=== PATIENT | female | born 1945 | race Caucasian/White ===

== ENCOUNTER 2021-05-07 12:54 | Outpatient (CLI) | payer MEDICARE, SELFPAY ==
[2021-05-07 13:30] VITALS: BP 130/65; PULSE 111; RESP 16; TEMP 37.3; O2SAT 99; BMI 21.5
[2021-05-07] MEDS: 0.9% Saline Lock 10 ML Syringe IV (13:35)
[2021-05-07 14:08] VITALS: BP 127/71; PULSE 85; RESP 16; TEMP 37.3; O2SAT 98
[2021-05-07 15:05] VITALS: BP 140/73; PULSE 78; RESP 16; TEMP 37.3; O2SAT 98
== END 2021-05-07 15:10 | disposition home or self-care (01) ==
LOC: MS3OUT 12:54 → MS3 12:55
PROVIDERS: PCP Family Medicine; Referring Provider Nurse Practitioner Adult Health; Visit Provider Nurse Practitioner Adult Health
DX: Z23 Encounter for immunization (principal); U07.1 COVID-19
CPT/HCPCS: J7050; M0245; Q0245; A4216

== ENCOUNTER 2022-07-15 15:00 | Outpatient (RCR) | payer MEDICARE, SELFPAY ==
--- NOTE | 2022-07-15 09:12 | HP.PTEVAL_ITS ---
Patient's Visit Information NILTON RUELAS is a 76 year old F referred to Physical Therapy by Dr. Long Marques DO with a diagnosis of R shoulder impingement. Date of Evaluation: 06/26/22 Physical Therapist: Zachary Garcia DPT - Visit Plan Frequency: 2x /Week Duration: 6 Weeks Plan: Start with RTC stability, lower trap/mid trap and rhomboid stregnthening. - Subjective Pt. is here today for her initial evaluation with diagnosis of R shoulder impingement syndrome. Pt. reports having symptoms for a few months, but has become worse with helping recently who has had more difficulty with his mobility. Pt. reports pain with sleeping on her R side and with lifting her arm out to the side. Pt. denies radicular pain. Pt. recently had an injection in her shoulder which had helped out a lot. Pt. has had similar pain since the summer, but has become worse since assisting her . Pt. has not been doing exercises at this point in time. Pt. is hopeful to reduce symptoms in order to get back to all recreational activities without limitations. - Pain R shoulder Pain Intensity (Out of 10): 3 Pain Intensity Range: 2, 8 - Objective POSTURE: Pt. has slight FH posture and slight rounded shoulders. Pt. is able to correct with VC/TCing. PALPATION: Pt. has slight tenderness at anterior/lateral aspect of subacromial space. No pain with scapular palpation. Slight tenderness along biceps tendon. NEURO: normal. ROM: Overall normal. Slight increase in symptoms with active shoulder abduction on R side. MMT: R shoulder: abduction 4+/5, flexion 4+/5, IR 5/5, ER 4/5, ext 5/5. L shoulder 5/5 throughout. - Balance/Special Test Scores Quick DASH Score: 36.3625 - Goals Goal 1:: LTG: Pt. to be I with HEP. Goal Time Frame: 4-6 Weeks Goal 2:: STG: Pt. to be able to complete all ADLs without issues. Goal Time Frame: 2 Weeks Goal 3:: STG: pt. to sleep without increase in R shoulder pain. Goal Time Frame: 2 Weeks Goal 4:: LTG: Pt. to have full motion of R shoulder without increase in symptoms. Goal Time Frame: 4-6 Weeks Goal 5:: LTG: Pt. to have full symmetrical strength of B shoulders without increase in symptoms. Goal Time Frame: 4-6 Weeks Goal 6:: LTG: pt. to complete all golf swings without increase in symptoms. Goal Time Frame: 4-6 Weeks - Rehabilitation Potential Physical Therapy Diagnosis: Pt. has signs and symptoms consistent with R shoulder impingement. She did not have any street signs of RTC tears or more sinister pathology. She has pain when impinging this area. She has decent strength, but I would like to work on her lower/mid trap and rhomboids to aid in proper mobility of the shoulder complex. Rehabilitation Potential: Excellent - Anticipated Interventions Patient/Client Instruction: Educate patient on: Condition, Plan of Care, Risk Factors, Benefits of Fitness Program For the Purpose of:: To foster healthy habits, To improve decision making, To facilitate caregiver knowledge, To improve self management, To prevent re- injury, To improve ability to perform tasks related to life management Therapeutic Exercise to Include: Strength training, Power training, Postural training, Scapular Strength/Stabilization For the Purpose of:: To decrease pain, To increase ROM, To improve nutrient delivery to tissue, To increase oxygenation perfusion, To improve muscle performance and motor function, To improve health of tissue, To decrease soft tissue restriction, To increase flexibility/ROM Manual Therapy Techniques to Include: Mobilization, Functional dry needling, Soft tissue mobilization For the Purpose of:: To increase ROM, To improve nutrient delivery to tissue, To increase oxygenation perfusion, To improve muscle performance and motor function Thank you for the opportunity to evaluate your patient. For Medicare and Medicare HMO plans, please review the plan of care and approve it. It will need to be FAXED BACK to us at [phone] for Medicare purposes. For Medicare only, by signing this I certify the plan of care. Please let me know if there are questions or concerns regarding this plan of care. Physician Signature: D ate:
== END 2022-07-15 19:00 | disposition home or self-care (01) ==
LOC: PT 15:00
PROVIDERS: PCP Family Medicine; Referring Provider Orthopaedic Surgery; Visit Provider Orthopaedic Surgery
DX: M75.41 Impingement syndrome of right shoulder (principal)
CPT/HCPCS: 97110; 97161

== ENCOUNTER 2022-11-26 08:00 | Outpatient (RCR) | payer MEDICARE, SELFPAY ==
--- NOTE | 2022-11-19 08:27 | HP.PTEVAL ---
Patient's Visit Information NILTON RUELAS is a 77 year old F referred to Physical Therapy by JG Romano with a diagnosis of R shoulder impingement. Date of Evaluation: 11/11/22 Physical Therapist: Zachary Garcia DPT - Visit Plan Frequency: 1-2x /Week Duration: 6 Weeks Plan: Start with - Subjective Pt. is here today for her initial evaluation with diagnosis of R shoulder impingement syndrome. Pt. reports having similar issue last year. She reports no mech of injury. Pt. reports haivng increased R shoulder pain with shoulder abduction and with flexion movements. She is able to play gofl without issues, but is mostly impacked with OH movements and with lifting. Pt. is hopeful to reduce symptoms in order to do all lifting without issues. - Pain R shoulder Pain Intensity (Out of 10): 0 Pain Intensity Range: 0, 2 Comment: 2/10 with abduction movements. - Objective POSTURE: Pt. has decent posture in stance. SLight rounded shoulders, but not bad. Pt. able to correct with VCing without increase in symptoms. PALPATION: Pt. has tenderness at lateral shoulder along lateral subacromial space and slightly posterior. NEURO: Normal sensation and normal DTR of BUEs. ROM: L shoulder: full ROM without increase in symptoms. R shoulder: full ROM but does have a marked painful arc with abd and flexion movements starting at ~70deg of each. MMT: L shoulder; 5/5 throughout without increase in symptoms. R elbow: 5/5 throughout; R shoulder: flexion 5-/5, abd 4/5 mild increase NW, ER 5-/5 mild increase NW, IR 5/5 NE, ext 5/5 NE. - Special Tests R Shoulder Drop Sign - IS Test: Negative R Shoulder Empty Can - SS: Positive R Shoulder Belly Press - SupScap: Negative R Shoulder Neer - Impingement: Positive R Shoulder Butts Jr - Impingement: Positive R Shoulder Yeargasons - SLAP: Negative R Shoulder Jerk Test - Posterior Inferior Labrum: Negative R Shoulder Apprehension Test - Anterior Instability: Negative R Shoulder Speeds Test - Labrum/Biceps: Negative - Balance/Special Test Scores Quick DASH Score: 20.4525 - Goals Goal 1:: LTG: Pt. to be I with HEP. Goal Time Frame: 4-6 Weeks Goal 2:: STG: pt. to sleep throughout the night without increase in symptoms. Goal Time Frame: 2-4 Weeks Goal 3:: LTG: Pt. to complete all recreational activities without increase in symptoms. Goal Time Frame: 4-6 Weeks Goal 4:: LTG: Pt. to have full R shoulder strength 5/5 without increase in symptoms. Goal Time Frame: 4-6 Weeks Goal 5:: LTG: Pt.t o have R shoulder ROM without increase in symptoms. Goal Time Frame: 2-4 Weeks - Rehabilitation Potential Physical Therapy Diagnosis: Pt. has signs and symptoms consistent with R shoulder impingement. Pt. has a painful arc and + special testing suggesting the similar. Pt. would benefit from PT increase her strength to reduce stress to RTC with over head movements. Rehabilitation Potential: Excellent - Anticipated Interventions Patient/Client Instruction: Educate patient on: Condition, Plan of Care, Risk Factors, Benefits of Fitness Program For the Purpose of:: To improve decision making, To facilitate caregiver knowledge, To improve self management, To prevent re-injury, To improve ability to perform tasks related to life management, To improve tolerance to ADL's Therapeutic Exercise to Include: Strength training, Power training, Endurance training, Passive ROM, Active ROM, Scapular Strength/Stabilization For the Purpose of:: To decrease pain, To increase ROM, To improve nutrient delivery to tissue, To increase oxygenation perfusion, To improve muscle performance and motor function, To improve ability to perform ADL's, To improve health of tissue, To decrease soft tissue restriction, To increase flexibility/ROM Thank you for the opportunity to evaluate your patient. For Medicare and Medicare HMO plans, please review the plan of care and approve it. It will need to be FAXED BACK to us at [phone] for Medicare purposes. For Medicare only, by signing this I certify the plan of care. Please let me know if there are questions or concerns regarding this plan of care. Physician Signature: Date:
--- NOTE | 2023-02-20 11:32 | HP.PT.NRP ---
Patient Information Patient Information: NILTON RUELAS was seen in my office for initial evaluation on 11/11/22. The following Plan of Care was established for this patient: POC Established Initial Frequency: 1-2x /Week Initial Duration: 6 Weeks Anticipated Interventions Patient/Client Instruction: Educate patient on: Condition, Plan of Care, Risk Factors and Benefits of Fitness Program For the Purpose of:: To improve decision making, To facilitate caregiver knowledge, To improve self management, To prevent re-injury, To improve ability to perform tasks related to life management and To improve tolerance to ADL's Therapeutic Exercise to Include: Strength training, Power training, Endurance training, Passive ROM, Active ROM and Scapular Strength/Stabilization For the Purpose of:: To decrease pain, To increase ROM, To improve nutrient delivery to tissue, To increase oxygenation perfusion, To improve muscle performance and motor function, To improve ability to perform ADL's, To improve health of tissue, To decrease soft tissue restriction and To increase flexibility/ROM Last Seen Last Seen: This patient was last seen in our office 11/26/22. Pertinent comments regarding their Physical therapy will appear below: Pt. was seen in PT for her R shoulder. Pt. was seen a few visits and was doing well. Pt. has not been seen in a few months and will be DC from PT at this point in time. At this point I will be discontinuing this patient from physical therapy. I would be happy to see this patient again in the future if found appropriate by the physician. Thank you! Zachary Garcia, DPT Balance/Gait/Functional tests Balance/Special Test Scores Quick DASH Score: 20.4553
== END 2022-11-26 19:00 | disposition home or self-care (01) ==
LOC: PT 08:00
PROVIDERS: PCP Family Medicine; Referring Provider Nurse Practitioner Family; Visit Provider Nurse Practitioner Family
DX: M75.40 Impingement syndrome of unspecified shoulder (principal)
CPT/HCPCS: 97110; 97161

== ENCOUNTER → 2023-03-31 | Outpatient (CLI) | payer MEDICARE, SELFPAY ==
--- NOTE | 2023-03-31 10:51 | BI_ITS ---
MAMMOGRAPHY - BILATERAL SCREENING REASON FOR EXAM: Female, 77 years old. Routine annual screening examination. PERTINENT HISTORY: Non-contributory. Remote right needle breast biopsy. TECHNIQUE: Digital bilateral breast toro (3D mammographic acquisition) in the CC and MLO projections. 2-D mediolateral oblique (MLO) and craniocaudad (CC) views of both breasts were obtained. CAD: Full Field Digital Mammography with Computer Added Detection was performed. COMPARISON: Comparison is made with prior outside examination of March 28, 2022 and May 09, 2017. FINDINGS: Breast Composition: The breasts are extremely dense, which lowers the sensitivity of mammography. There are no dominant masses or suspicious calcifications. Stable small benign-appearing bilateral axillary lymph nodes. Once again, 2 tissue markers are seen in the central slightly medial aspect of the right breast. No other significant abnormalities are identified. There has been no significant change since the prior study. BI/SCRN MAMM (CAD)W/TORO BILAT IMPRESSION: Stable bilateral screening mammogram. Yearly follow-up mammogram recommended. (A) ASSESSMENT CATEGORY: BIRADS Category 2: Benign. A letter regarding these results will be sent to the patient by the facility within 30 days. Approximately 10% of breast cancers are not detected by mammography. A normal mammogram should not delay biopsy of a clinically suspicious abnormality. [id number] Electronically Signed: Aashish Licea MD at 13:52 EDT ,
== END | disposition home or self-care (01) ==
LOC: OPBI 10:50
PROVIDERS: PCP Family Medicine; Referring Provider Family Medicine; Visit Provider Family Medicine
DX: Z12.31 Encounter for screening mammogram for malignant neoplasm of breast (principal)
CPT/HCPCS: 77063; 77067

== ENCOUNTER → 2023-04-02 | Outpatient (CLI) | payer MEDICARE, SELFPAY ==
[2023-04-02] MEDS: Methacholine Chloride 18 ml neb kit INHALATION (13:09)
--- NOTE | 2023-04-03 07:47 | BRONCHALL ---
Bronchoprovocation Challenge Bronchoprovocation Challenge Bronchoprovocation Challenge: INTRODUCTION: The patient is a 77-year-old female who presents for a bronchoprovocation challenge secondary to a diagnosis of cough. Respiratory therapy reported good patient effort and reproducible results. INTERPRETATION: Initial spirometry did not show any large airways obstructive ventilatory defect with preserved airflows throughout. The patient was then given progressively increasing doses of methacholine in a standardized fashion. The patient did not demonstrate any significant drop in FEV1 during testing that would be considered indicative of a positive test. IMPRESSION: Negative methacholine inhalation challenge.
== END | disposition home or self-care (01) ==
PROVIDERS: PCP Family Medicine
DX: R05.3 Chronic cough (principal)
CPT/HCPCS: 94070; 95070

== ENCOUNTER 2023-12-04 15:00 | Outpatient (RCR) | payer MEDICARE, SELFPAY ==
--- NOTE | 2023-10-23 15:47 | HP.PTEVAL ---
Patient's Visit Information Visit Information Visit Information: NILTON RUELAS is a 78 year old F referred to Physical Therapy by VERONICA YO with a diagnosis of R displaced mid cervical femur fx. Date of Evaluation: 10/22/23 Physical Therapist: Zachary Garcia DPT Visit Plan Frequency: 2x /Week Duration: 6 Weeks Plan: 1) BLE strength, especially knee extension and hip flexion. 2) balance training both static and dynamically. 3) agility exercises and balance recovery for increased stability with sports. Subjective Subjective: Pt. is here today for her initial evaluation with diagnosis of R displaced mid cervical femur fx. DOS: 07/08/23. Pt. fell and had a fracture. Pt. is overall doing well. pt. is hopeful to get back to golfing and pickleball. She is I with all mobility and household activities. She is back to driving as well. She reports still feeling week on her RLE and this is effecting her balance a bit. Pt. reports some achiness in her hip, but overall not much pain. She is back to driving and walking without AD. Pt. reports that she still feels weak in her RLE. Not much pain noted. Pt. would like to have increased strength to get back to all of her recreational activities without limitations. Pain R hip: Pain Intensity (Out of 10): 0 Pain Intensity Range: 0 and 1 Comment: a little achy Objective Objective: POSTURE: Pt. has pretty good posture in stance. No larger lateral wt. shift noted. PALPATION: Pt. has no tenderness to palpation NEURO: Normal throughout ROM: Pt. has good ROM throughout B hips. Normal HS length MMT: RLE: knee: ext 44.6#, flexion: 39.1#; hip: flexion 24.5#, abd: 22.1#, ext: 19.8# LLE: knee: ext 60.8#, flexion: 34.1#; hip: flexion 38.1#, abd: 22.5#, ext 22.6# GAIT: Pt. has a fairly normal gait pattern. No Trendelenburg noted. STAIRS: Pt. is able to negotiate with 1 HR without issues. Balance/Special Test Scores Functional Gait Assessment Score: 23 % Disability: 23.3400 Lower Extremity Functional Score: 60 TUG Test Time Seconds: 9.1 30 Second Chair Rise Test Seconds: 12 6 Minute Walk Test: 1210feet with out AD. Goals Goal 1:: LTG: Pt. to be I with HEP for LE strengthening and agility exercises. Goal Time Frame: 4-6 Weeks Goal 2:: LTG: Pt. to have increased strength throughout BLEs by 10#. Goal Time Frame: 4-6 Weeks Goal 3:: LTG: pt. to be able to golf and play pickleball without limitations or risk for falling. Goal Time Frame: 4-6 Weeks Goal 4:: LTG: Pt. to have increased FGA to 30/30 indicating reduced risk for future fall. Goal Time Frame: 4-6 Weeks Rehabilitation Potential Physical Therapy Diagnosis: Pt. has signs and symptoms consistent with R ORIF of her femur. Pt. is overall doing well, but has higher goals of getting back to golfing and pickleball. She has some marked weakness for the levels of these activities and I would like to progress these in PT. Her focus shoulder be on increasing her RLE strength and dynamic balance to increase stability and reduce risk for future falls. Rehabilitation Potential: Excellent Anticipated Interventions Patient/Client Instruction: Educate patient on: Condition, Plan of Care, Risk Factors and Benefits of Fitness Program For the Purpose of:: To facilitate caregiver knowledge, To improve self management, To prevent re-injury, To improve ability to perform tasks related to life management and To improve tolerance to ADL's Therapeutic Exercise to Include: Strength training, Power training, Endurance training, Balance training, Coordination, Flexibilty training, Gait and locomotor training and Active ROM For the Purpose of:: To increase ROM, To improve nutrient delivery to tissue, To increase oxygenation perfusion, To improve muscle performance and motor function, To improve gait and locomotor functions, To improve health of tissue, To decrease soft tissue restriction and To increase flexibility/ROM Text: Thank you for the opportunity to evaluate your patient. For Medicare and Medicare HMO plans, please review the plan of care and approve it. It will need to be FAXED BACK to us at [phone] for Medicare purposes. For Medicare only, by signing this I certify the plan of care. Please let me know if there are questions or concerns regarding this plan of care. Physician Signature: Date:
--- NOTE | 2024-01-08 09:23 | HP.PTDCSUM ---
Discharge Summary D/C summary: It has been my pleasure to treat NILTON RUELAS referred by VERONICA YO, with the diagnosis of R displaced mid cervical femur fx for a total of 12 visit(s). Discharge Date: 12/04/23 Please see the following information for a summary of their discharge status. Subjective Subjective: Pt. reports overall doing much better. She is back to golfing and doing all of his work around the house. She has not started back to pickleball yet. Pt. is pleased with progress thus far. Occasional soreness with squatting, but overall doing well. No issues with walking. Pain R hip: Pain Intensity (Out of 10): 0 Overall Improvement % Improvement: 80 Objective Objective/Function: ROM: Normal ROM without increase in symptoms. Pt. has good HS length as well. MMT: RLE: knee: ext 55.6#, flexion: 42.1#; hip: flexion 31.5#, abd: 23.5.1#, ext: 22.8# LLE: knee: ext 60.1#, flexion: 32.9#; hip: flexion 37.3#, abd: 23.1.5#, ext 24.1# pt. has improved with all of her strength of her RLE. No pain noted with all testing today. She is still slightly weaker on the one side, but has improved a lot. GAIT: normal without AD. STAIRS: normal without use of HR. Overall Faye is doing well. I am DCing her form PT at this point in time. Goals Goal 1:: LTG: Pt. to be I with HEP for LE strengthening and agility exercises. Goal Progress: Goal Met Goal 2:: LTG: Pt. to have increased strength throughout BLEs by 10#. Goal 3:: LTG: pt. to be able to golf and play pickleball without limitations or risk for falling. Goal Progress: Progressing Goal 4:: LTG: Pt. to have increased FGA to 30/30 indicating reduced risk for future fall. Goal Progress: Goal Met Plan Plan: Pt. to be DC from PT at this point in time. Pt. has met all goals except returning back to pickleball. Pt. is to continue with her strengthening exercises on her own. Pt. consents. D/C Information Discharge Comments: Pt. was treated with strengthening and dynamic agility exercises in PT. Pt. is doing much better. She will be DC from PT at this point in time. d/c sentence: If there are questions or concerns regarding this patient's physical therapy, please feel free to call me at [phone]. Thank you for the referral of this patient. Sincerely, Zachary Garcia, DPT Balance/Gait/Functional tests Balance/Special Test Scores Functional Gait Assessment Score: 30 % Disability: 0 Lower Extremity Functional Score: 69 TUG Test Time Seconds: 9.1 Tug Test: <10 sec.=free mobile 30 Second Chair Rise Test Seconds: 12 6 Minute Walk Test: 1210feet with out AD. Improvement % Improvement: 80
== END 2023-12-04 19:00 | disposition home or self-care (01) ==
LOC: PT 15:00
PROVIDERS: PCP Family Medicine
DX: S72.031D Displaced midcervical fracture of right femur, subsequent encounter for closed fracture with routine healing (principal)
CPT/HCPCS: 97110; 97161; 97530

== ENCOUNTER 2024-02-12 09:00 | Outpatient (RCR) | payer MEDICARE, SELFPAY ==
--- NOTE | 2024-01-12 11:01 | HP.PTEVAL ---
Patient's Visit Information Visit Information Visit Information: NILTON RUELAS is a 78 year old F referred to Physical Therapy by Dr. Alan Mayer MD with a diagnosis of Acute R hip pain. Date of Evaluation: 01/08/24 Physical Therapist: Zachary Garcia DPT Visit Plan Frequency: 2-3x /Week Duration: 4 Weeks Plan: Start with ROM, US and stretching to R hip. Both piriformis and glute stretching. Recheck lumbar symptoms next visit. Subjective Subjective: Pt. is here today for her initial evaluation with diagnosis of acute R hip pain. Pt. reports a few weeks ago she had a deep tissue massage and since then she has had intense pain the posterior aspect of her R hip and down into her HS region. Pt. reports no history of LBP and has not had any LBP currently. Pt. reports having increased cramping like pain in her R glute and down her HS to her knee at times. Pt. reports trying all sorts of topical creams without relief. She reports transitions from siting to standing and back seem to irritate it as well. She denies N/T in either LE. Pt. reports no sudden weakness in her RLE either. She does have a history of a R femur fracture earlier this year. She is hopeful to reduce symptoms in order to get back to playing golf this next week as she is in a tournament. Pain R posterior hip: Pain Intensity (Out of 10): 4 Pain Intensity Range: 2 and 8 Objective Objective: POSTURE: Pt. has decent posture in stance. Pt. has no lateral shift noted. Pt. does not seem to be attempting to off load RLE either. PALPATION: Pt. has no pain with palpation of R HS, she does have some soreness at gluteal region, near piriformis. NEURO: normal DTR and normal sensation throughout BLEs. ROM: Pt. has normal R hip ROM, expect slight tightness with her ER stretching. She had some mild anterior hip pinching with FADDIR, normal DORINDA Noted. MMT: Pt. has decent strength throughout BLEs, slight weakness with R glute testing, but has marked increase in symptoms with hip extension testing. GAIT: Pt. has fairly normal gait pattern. No antalgic pattern noted. Balance/Special Test Scores Lower Extremity Functional Score: 24 Goals Goal 1:: LTG: Pt. to be I with HEP. Goal Time Frame: 4-6 Weeks Goal 2:: STG: pt. to have decreased symptoms to 0-2/10 pain in R hip allowing for better tolerance to all functional an golf activities. Goal Time Frame: 2-4 Weeks Goal 3:: LTG: Pt. to complete all golf and recreational activities without increase in R hip pain. Goal Time Frame: 4-6 Weeks Goal 4:: STG: pt. to complete sit to stand movements without increase in R gluteal pain. Goal Time Frame: 2-4 Weeks Rehabilitation Potential Physical Therapy Diagnosis: Pt. has signs and symptoms are consistent with acute R hip pain. She has marked increased R hip pain, pain with glute contraction. It appear to be more of a piriformis issue, rather than radicular symptoms. Rehabilitation Potential: Good Anticipated Interventions Patient/Client Instruction: Educate patient on: Condition, Plan of Care, Risk Factors and Benefits of Fitness Program For the Purpose of:: To improve decision making, To facilitate caregiver knowledge, To improve self management, To prevent re-injury, To improve ability to perform tasks related to life management and To improve tolerance to ADL's Therapeutic Exercise to Include: Strength training, Power training, Postural training, Flexibilty training, Gait and locomotor training, Passive ROM, Active ROM and Zach Exercises For the Purpose of:: To decrease pain, To decrease swelling/inflammation, To increase ROM, To improve nutrient delivery to tissue, To increase oxygenation perfusion, To improve muscle performance and motor function and To improve ability to perform ADL's Manual Therapy Techniques to Include: Mobilization, Passive ROM and Soft tissue mobilization For the Purpose of:: To decrease pain, To decrease swelling/inflammation, To increase ROM, To improve nutrient delivery to tissue, To increase oxygenation perfusion and To improve muscle performance and motor function IF ES: Yes Cryotherapy (ice pack, ice massage): Yes Ultrasound (thermal/non thermal): Yes For the Purpose of:: To decrease pain, To decrease swelling/inflammation, To increase ROM and To improve nutrient delivery to tissue Text: Thank you for the opportunity to evaluate your patient. For Medicare and Medicare HMO plans, please review the plan of care and approve it. It will need to be FAXED BACK to us at [phone] for Medicare purposes. For Medicare only, by signing this I certify the plan of care. Please let me know if there are questions or concerns regarding this plan of care. Physician Signature: Date:
== END 2024-02-12 19:00 | disposition home or self-care (01) ==
LOC: PT 09:00
PROVIDERS: PCP Family Medicine; Referring Provider Family Medicine; Visit Provider Family Medicine
DX: M25.551 Pain in right hip (principal)
CPT/HCPCS: 97110; 97161; 97530